=== PATIENT | male | born 1960 | race Caucasian/White ===

== ENCOUNTER 2017-04-24 19:55 | Inpatient (IN) | payer MEDICAID ==
[~2017-04-24] VITALS: Ht 167.6 cm; Wt 100.0 kg
[~2017-04-24 19:55] MED LIST: IBUP-232 PO
[2017-04-24 19:58] VITALS: BP 182/99; PULSE 76; RESP 30; TEMP 98.6; O2SAT 98
[2017-04-24 20:12] VITALS: BP_SYST 186; BP_SYST 202; BP_DIAS 111; BP_DIAS 114; PULSE 78; RESP 26; O2SAT 98
[2017-04-24] MEDS ORDERED: ONDANSETRON HCL 4 MG/2 ML VIAL IV PUSH ONE (20:15)
[2017-04-24] MEDS ORDERED: SODIUM CHLORIDE 0.9% FLUSH 10 ML FLUSH IVF PRN (20:15)
[2017-04-24] MEDS ORDERED: MORPHINE SULFATE 4 MG/ML INJ IV PUSH ONE (20:15)
[2017-04-24] MEDS: SODIUM CHLOR 0.9% 1000 ML INJ 1,000 ML IV SCH (20:26)
[2017-04-24 20:27] VITALS: O2SAT 96
[2017-04-24 20:37] LABS: AUTOMATED NEUTROPHIL # 7.1 TH/MM3 (1.8-7.7); BASOPHIL # 0.1 TH/MM3 (0-0.2); BASOPHIL % 0.6 % (0.0-2.0); EOSINOPHIL % 0.1 % (0.0-4.0); HEMATOCRIT 42.6 % (39.0-51.0); HEMOGLOBIN 14.8 GM/DL (13.0-17.0); LYMPH % 14.8 % (9.0-44.0); LYMPHOCYTE # 1.4 TH/MM3 (1.0-4.8); MEAN CELL VOLUME 96.2 FL (80.0-100.0); MEAN CORPUSCULAR HEMOGLOBIN 33.5 PG (27.0-34.0); MEAN CORPUSCULAR HGB CONC 34.8 % (32.0-36.0); MEAN PLATELET VOLUME 7.5 FL (7.0-11.0); MONO % 7.9 % (0.0-8.0); MONOCYTE # 0.7 TH/MM3 (0-0.9); NEUT % 76.6 % (16.0-70.0); PLATELET COUNT 282 TH/MM3 (150-450); RED BLOOD COUNT 4.43 MIL/MM3 (4.50-5.90); RED CELL DISTRIBUTION WIDTH 13.3 % (11.6-17.2); WHITE BLOOD COUNT 9.2 TH/MM3 (4.0-11.0)
--- NOTE | 2017-04-24 20:48 | RADRPT ---
EXAM DATE/TIME: 04/24/2017 20:21 [facility] COMPARISON: No previous studies available for comparison. INDICATIONS : Pain from fall off of roof. MEDICAL HISTORY : None. SURGICAL HISTORY : None. ENCOUNTER: Initial ACUITY: 1 day PAIN SCORE: 4/10 LOCATION: Bilateral pelvis FINDINGS: A single frontal view of the pelvis demonstrates no evidence of fracture. The bony pelvic ring is in tact. Bony mineralization is normal. The soft tissues are intact. CONCLUSION: 1. No acute fracture or dislocation. Derrick Carbajal MD on April 24, 2017 at 20:46 Board Certified Radiologist. This report was verified electronically.
[2017-04-24 20:50] LABS: PROTHROMBIN TIME - PATIENT 10.4 SEC (9.8-11.6)
--- NOTE | 2017-04-24 20:50 | RADRPT ---
EXAM DATE/TIME: 04/24/2017 20:31 [facility] COMPARISON: No previous studies available for comparison. INDICATIONS : Pain from fall off of roof. MEDICAL HISTORY : None. SURGICAL HISTORY : None. ENCOUNTER: Initial ACUITY: 1 day PAIN SCORE: 7/10 LOCATION: Right upper chest FINDINGS: There are mildly displaced fractures of the posterior third, and lateral fifth and sixth right ribs. There is a small loculated right effusion, likely hemothorax. Minimal left lung base airspace disease . Cardiomediastinal contours are within normal limits given portable technique. Remaining osseous str uctures are intact. CONCLUSION: 1. Minimally displaced right-sided rib fractures with very subtle right hemothorax. 2. Minimal left lung base airspace disease, likely atelectasis or contusion. Derrick Carbajal MD on April 24, 2017 at 20:48 Board Certified Radiologist. This report was verified electronically.
[2017-04-24 21:00] VITALS: BP 165/91; PULSE 71; RESP 26; O2SAT 97
[2017-04-24 21:12] LABS: TROPONIN I LESS THAN 0.02 NG/ML (0.02-0.05)
[2017-04-24] MEDS ORDERED: IOHEXOL 350 MG/ML 10 ML VIAL (for RAD DIAG) IVCONTRAST ONE (21:26)
--- NOTE | 2017-04-24 21:38 | RADRPT ---
EXAM DATE/TIME: 04/24/2017 21:04 [facility] COMPARISON: No previous studies available for comparison. INDICATIONS : Trauma, fall off roof. RADIATION DOSE: 65.86 CTDIvol (mGy) ; Tabletop CT Head MEDICAL HISTORY : None SURGICAL HISTORY : None. ENCOUNTER: Initial ACUITY: 1 day PAIN SCALE: 10/10 LOCATION: cranial TECHNIQUE: Multiple contiguous axial images were obtained of the head. Using automated exposure control and adj ustment of the mA and/or kV according to patient size, radiation dose was kept as low as reasonably a chievable to obtain optimal diagnostic quality images. DICOM format image data is available electro nically for review and comparison. FINDINGS: CEREBRUM: The ventricles are normal for age. No evidence of midline shift, mass lesion, hemorrhage or acute in farction. No extra-axial fluid collections are seen. POSTERIOR FOSSA: The cerebellum and brainstem are intact. The 4th ventricle is midline. The cerebellopontine angle i s unremarkable. EXTRACRANIAL: The visualized portion of the orbits is intact. SKULL: The calvaria is intact. No evidence of skull fracture. CONCLUSION: 1. No acute intracranial abnormality. Derrick Carbajal MD on April 24, 2017 at 21:36 Board Certified Radiologist. This report was verified electronically.
--- NOTE | 2017-04-24 21:43 | PD ---
HPI Chief Complaint: Fall Time Seen by Provider: 20:11 Travel History International Travel<30 days: No Contact w/Intl Traveler<30days: No Traveled to known affect area: No History of Present Illness HPI 56-year-old male fell from first-floor roof approximately 10 feet at 3 PM this afternoon. Patient states he landed on his back. Patient denies hitting his head or having loss of consciousness. Patient reports mild soreness to the neck but denies any neck pain. Due to persistent pain patient 6 presents because of chest pain and upper back pain. Patient denies any abdominal pain arm or leg pain. Patient rates pain as severe. Denies medical history except ventral hernia. Denies taking any medications. Patient denies tobacco use admits to alcohol use. Last meal. PFSH Past Medical History Narrative Medical Ventral hernia; no tobacco use; alcohol use occasionally; nursing notes reviewed Medical History: Denies Significant Hx Medical other: Yes (hernia) Tetanus Vaccination: > 5 Years Influenza Vaccination: No Past Surgical History Surgical History: No Previous Surgery Social History Alcohol Use: Yes (occ) Tobacco Use: No Substance Use: No Allergies-Medications (Allergen,Severity, Reaction): Coded Allergies: No Known Allergies (Unverified Adverse Reaction, Unknown, 04/24/17) Reported Meds & Prescriptions Reported Meds & Active Scripts Active No Active Prescriptions or Reported Medications Review of Systems Except as stated in HPI: all other systems reviewed are Neg General / Constitutional: No: Fever Eyes: No: Visual changes HENT: No: Headaches, Neck Pain Cardiovascular: Positive: Chest Pain or Discomfort Respiratory: Positive: Shortness of Breath Gastrointestinal: No: Abdominal Pain Genitourinary: No: Flank Pain Musculoskeletal: Positive: Myalgias, Arthralgias, No: Weakness, Pain (No upper or lower extremity pain numbness tingling or weakness) Skin: No Rash Neurologic: No: Weakness, Headache, Change in Mentation Psychiatric: No: Anxiety Hematologic/Lymphatic: No: Easy Bruising Physical Exam Narrative GENERAL: Well-developed well-nourished Kazakh-speaking male in no acute distress or respiratory distress although grimaces in pain with deep respiratory effort; GCS 15 SKIN: Warm and dry. HEAD: Atraumatic. Normocephalic. EYES: Pupils equal and round. No scleral icterus. No injection or drainage. ENT: No nasal bleeding or discharge. Mucous membranes pink and moist. No hemotympanum NECK: Trachea midline. No JVD. No midline tenderness to direct palpation along the cervical spine and no bony step-off; cervical collar applied CARDIOVASCULAR: Regular rate and rhythm. Chest wall: No ecchymosis or abrasion but tenderness to palpation of the chest wall without crepitus. RESPIRATORY: No accessory muscle use. Clear to auscultation. Breath sounds equal bilaterally. GASTROINTESTINAL: Abdomen soft, non-tender, nondistended. Hepatic and splenic margins not palpable. Small 5 cm x 5 cm reducible hernia in the epigastrium area MUSCULOSKELETAL: Extremities without clubbing, cyanosis, or edema. No obvious deformities. Radial and dorsalis pedis pulses 2+ to palpation. NEUROLOGICAL: Awake and alert. No obvious cranial nerve deficits. Motor grossly within normal limits. Five out of 5 muscle strength in the arms and legs. Normal speech. PSYCHIATRIC: Appropriate mood and affect; insight and judgment normal. Data Data Last Documented VS Vital Signs Date Time Temp Pulse Resp B/P (MAP) Pulse Ox O2 Delivery O2 Flow Rate FiO2 04/24/17 21:00 71 26 165/91 (115) 97 Nasal Cannula 2.00 04/24/17 19:58 98.6 Orders Orders I-Stat Profile (04/24/17 20:11) Complete Blood Count With Diff (04/24/17 20:11) Prothrombin Time / Inr (Pt) (04/24/17 20:11) Act Partial Throm Time (Ptt) (04/24/17 20:11) Type And Screen (04/24/17 20:11) Alcohol (Ethanol) (04/24/17 20:11) Chest, Single Ap (04/24/17 20:11) Pelvis, Ap Only (Routine) (04/24/17 20:11) Ct Brain W/O Iv Contrast(Rout) (04/24/17 20:11) Ct Cerv Spine W/O Contrast (04/24/17 20:11) Ct Abd/Pel W Iv Contrast(Rout) (04/24/17 20:11) Ct Thorax/ Chest W Iv Contrast (04/24/17 20:11) Ct Thor Spine W Iv Contrast (04/24/17 20:11) Ct Lumb Spine W Iv Contrast (04/24/17 20:11) Iv Access Insert/Monitor (04/24/17 20:11) Ecg Monitoring (04/24/17 20:11) Oximetry (04/24/17 20:11) Oxygen Administration (04/24/17 20:11) Morphine Inj (Morphine Inj) (04/24/17 20:15) Ondansetron Inj (Zofran Inj) (04/24/17 20:15) Sodium Chloride 0.9% Flush (Ns Flush) (04/24/17 20:15) Sodium Chlor 0.9% 1000 Ml Inj (Ns 1000 M (04/24/17 20:15) Electrocardiogram (04/24/17 ) Troponin I (04/24/17 20:11) Apply Cervical Collar (04/24/17 20:20) Iohexol 350 Inj (Omnipaque 350 Inj) (04/24/17 21:26) Labs Laboratory Tests Test 04/24/17 20:15 White Blood Count 9.2 TH/MM3 Red Blood Count 4.43 MIL/MM3 Hemoglobin 14.8 GM/DL Bedside Hemoglobin 15.0 G/DL Hematocrit 42.6 % Bedside Hematocrit 44.0 % Mean Corpuscular Volume 96.2 FL Mean Corpuscular Hemoglobin 33.5 PG Mean Corpuscular Hemoglobin Concent 34.8 % Red Cell Distribution Width 13.3 % Platelet Count 282 TH/MM3 Mean Platelet Volume 7.5 FL Neutrophils (%) (Auto) 76.6 % Lymphocytes (%) (Auto) 14.8 % Monocytes (%) (Auto) 7.9 % Eosinophils (%) (Auto) 0.1 % Basophils (%) (Auto) 0.6 % Neutrophils # (Auto) 7.1 TH/MM3 Lymphocytes # (Auto) 1.4 TH/MM3 Monocytes # (Auto) 0.7 TH/MM3 Eosinophils # (Auto) 0.0 TH/MM3 Basophils # (Auto) 0.1 TH/MM3 CBC Comment DIFF FINAL Differential Comment Prothrombin Time 10.4 SEC Prothromb Time International Ratio 1.0 RATIO Activated Partial Thromboplast Time 25.4 SEC Bedside Sodium 138 MMOL/L Bedside Potassium 3.9 MMOL/L Bedside Chloride 101 MMOL/L Bedside Blood Urea Nitrogen 6 MG/DL Bedside Creatinine 0.6 MG/DL Bedside Glucose 104 MG/DL Troponin I LESS THAN 0.02 NG/ML Ethyl Alcohol Level LESS THAN 3 MG/DL MDM Medical Decision Making Medical Screen Exam Complete: Yes Emergency Medical Condition: Yes Medical Record Reviewed: Yes Interpretation(s) EKG: Normal sinus rhythm rate [address] elevation or injury pattern intraventricular conduction delay Last Impressions Pelvis X-Ray 04/24/172010 Signed Impressions: Service Date/Time: Monday, April 24, 2017 20:21 - CONCLUSION: 1. No acute fracture or dislocation. Derrick Carbajal MD Head CT 04/24/172010 Signed Impressions: Service Date/Time: Monday, April 24, 2017 21:04 - CONCLUSION: 1. No acute intracranial abnormality. Derrick Carbajal MD Chest X-Ray 04/24/172010 Signed Impressions: Service Date/Time: Monday, April 24, 2017 20:31 - CONCLUSION: 1. Minimally displaced right-sided rib fractures with very subtle right hemothorax. 2. Minimal left lung base airspace disease, likely atelectasis or contusion. Derrick Carbajal MD Chest CT 04/24/172010 Signed Impressions: Service Date/Time: Monday, April 24, 2017 21:10 - CONCLUSION: 1. Multiple right-sided rib fractures, most prominently is a displaced posterior third rib fracture. 2. Very small right-sided hemothorax containing subtle foci of air and probable very subtle medial pneumothorax near the apex. 3. Minimal bibasilar airspace disease which may reflect atelectasis or pulmonary contusions. Derrick Carbajal MD Cervical Spine CT 04/24/172010 Signed Impressions: Service Date/Time: Monday, April 24, 2017 21:04 - CONCLUSION: 1. No acute cervical fracture or dislocation. 2. Nondisplaced fracture the posterior right second rib with partially imaged right pleural effusion containing foci of air. Please see CT chest report for details. Derrick Carbajal MD Abdomen/Pelvis CT 04/24/172010 Signed Impressions: Service Date/Time: Monday, April 24, 2017 21:10 - CONCLUSION: 1. No apparent acute traumatic injury in the abdomen or pelvis. 2. Incidental note of a 0.3 cm isodense exophytic mass arising from the posterior mid left kidney. Differential considerations include hemorrhagic cyst versus small renal cell carcinoma. Recommend renal mass protocol MRI examination on an outpatient basis for better evaluation. Derrick Carbajal MD CBC & BMP Diagram 04/24/17 20:15 Vital Signs Date Time Temp Pulse Resp B/P (MAP) Pulse Ox O2 Delivery O2 Flow Rate FiO2 04/24/17 21:00 71 26 165/91 (115) 97 Nasal Cannula 2.00 04/24/17 20:27 96 Room Air 04/24/17 20:12 78 26 202/114 (143) 98 Room Air 186/111 (136) 04/24/17 19:58 98.6 76 30 182/99 (126) 98 Room Air I-STAT chemistries sodium 138 potassium 3.9 chloride 101 BUN 6 creatinine 0.6 glucose 104; hemoglobin 15 hematocrit 44% Troponin I: Less than 0.02, not elevated Serum alcohol: Less than 3, not elevated Differential Diagnosis Rib fracture, pneumothorax, hemothorax, thoracic spine lumbar spine fracture cervical spine sprain strain fracture, intra-abdominal viscus injury, pelvis fracture Narrative Course 56-year-old male fell approximately 10 feet from roof at 3 PM today presents by private vehicle for complaint of back pain and anterior chest pain and pain on respirations with reported no head injury or loss of consciousness. Patient had no upper or lower extremity numbness tingling or weakness and has been ambulatory since injury but due to persistent pain decided to come to the emergency room for evaluation. Patient placed on residential monitor IV access obtain stat blood ordered patient moves GCS of 15 lungs sounds are clear bilaterally patient has chest wall tenderness to palpation without crepitus or ecchymosis or abrasion abdomen soft nondistended pelvis stable extremities intact without deformity. Stat chest x- ray and pelvis x-ray ordered. Dr Nieto - notified multiple right sided rib fractures small right hemothorax by cxr At 9:55 PM, surgeon informed of all imaging results except for pending thoracic spine CT and lumbar spine CT; per Dr. Quintero admit patient to his service as observation Physician Communication Physician Communication stat call to trauma --Dr Nieto Diagnosis Primary Impression: Multiple rib fractures involving four or more ribs Additional Impressions: Hemopneumothorax on right Status post fall Admitting Information Admitting Physician Requests: Admit Scripts No Active Prescriptions or Reported Meds Angie London MD Apr 24, 2017 21:43
--- NOTE | 2017-04-24 21:44 | RADRPT ---
EXAM DATE/TIME: 04/24/2017 21:04 [facility] COMPARISON: No previous studies available for comparison. INDICATIONS : Trauma, fall off roof. RADIATION DOSE: 21.54 CTDIvol (mGy) MEDICAL HISTORY : None SURGICAL HISTORY : None. ENCOUNTER: Initial ACUITY: 1 day PAIN SCALE: 10/10 LOCATION: neck TECHNIQUE: Volumetric scanning of the cervical spine was performed. Multiplanar reconstructions in the sagittal, coronal and oblique axial planes were performed. Using automated exposure control and adjustment o f the mA and/or kV according to patient size, radiation dose was kept as low as reasonably achievable to obtain optimal diagnostic quality images. DICOM format image data is available electronically f or review and comparison. FINDINGS: Nondisplaced fracture of the posterior right second rib. Partially imaged right pleural effusion cont aining small foci of air. Vertebral body heights are maintained. Osseous structures are intact withou t evidence for acute bony fracture. Dens is intact. Sagittal alignment is maintained. There is a norm al C1-2 relationship. Facets are normally aligned. There is no significant prevertebral soft tissue h ematoma. No significant cervical adenopathy or gross mass. The thyroid appears unremarkable. CONCLUSION: 1. No acute cervical fracture or dislocation. 2. Nondisplaced fracture the posterior right second rib with partially imaged right pleural effusion containing foci of air. Please see CT chest report for details. Derrick Carbajal MD on April 24, 2017 at 21:39 Board Certified Radiologist. This report was verified electronically.
--- NOTE | 2017-04-24 21:48 | RADRPT ---
EXAM DATE/TIME: 04/24/2017 21:10 [facility] COMPARISON: No previous studies available for comparison. INDICATIONS : Trauma, fall off roof. IV CONTRAST: 100 cc Omnipaque 350 (iohexol) IV ; Cumulative dose for multiple exams. ORAL CONTRAST: No oral contrast ingested. RADIATION DOSE: 18..01 CTDIvol (mGy) ; Combined studies - Thorax/Abdomen/Pelvis MEDICAL HISTORY : None SURGICAL HISTORY : None. ENCOUNTER: Initial ACUITY: 1 day PAIN SCALE: 10/10 LOCATION: abdomen TECHNIQUE: Volumetric scanning of the abdomen and pelvis was performed. Using automated exposure control and ad justment of the mA and/or kV according to patient size, radiation dose was kept as low as reasonably achievable to obtain optimal diagnostic quality images. DICOM format image data is available electro nically for review and comparison. FINDINGS: LIVER: Homogeneous density without lesion. There is no dilation of the biliary tree. No calcified gallston es. SPLEEN: Normal size without lesion. PANCREAS: Within normal limits. KIDNEYS: There is a 1.3 cm isodense exophytic mass arising from the posterior mid left kidney. Kidneys otherwi se demonstrate symmetrical enhancement without evidence for hydronephrosis or perinephric fluid. ADRENAL GLANDS: Within normal limits. VASCULAR: There is no aortic aneurysm. BOWEL/MESENTERY: The stomach, small bowel, and colon demonstrate no acute abnormality. There is no free intraperitone al air or fluid. ABDOMINAL WALL: Within normal limits. RETROPERITONEUM: There is no lymphadenopathy. BLADDER: No wall thickening or mass. REPRODUCTIVE: Within normal limits. INGUINAL: There is no lymphadenopathy or hernia. MUSCULOSKELETAL: Abdominal and pelvic osseous structures appear intact without acute fracture. CONCLUSION: 1. No apparent acute traumatic injury in the abdomen or pelvis. 2. Incidental note of a 0.3 cm isodense exophytic mass arising from the posterior mid left kidney. Di fferential considerations include hemorrhagic cyst versus small renal cell carcinoma. Recommend renal mass protocol MRI examination on an outpatient basis for better evaluation. Derrick Carbajal MD on April 24, 2017 at 21:43 Board Certified Radiologist. This report was verified electronically.
--- NOTE | 2017-04-24 21:53 | RADRPT ---
EXAM DATE/TIME: 04/24/2017 21:10 [facility] COMPARISON: No previous studies available for comparison. INDICATIONS : Trauma, fall off roof. IV CONTRAST: 100 cc Omnipaque 350 (iohexol) IV ; Cumulative dose for multiple exams. RADIATION DOSE: 18.01 CTDIvol (mGy) ; Combined studies - Thorax/Abdomen/Pelvis MEDICAL HISTORY : None SURGICAL HISTORY : None. ENCOUNTER: Initial ACUITY: 1 day PAIN SCALE: 10/10 LOCATION: chest TECHNIQUE: Volumetric scanning of the chest was performed. Using automated exposure control and adjustment of t he mA and/or kV according to patient size, radiation dose was kept as low as reasonably achievable to obtain optimal diagnostic quality images. DICOM format image data is available electronically for review and comparison. Follow-up recommendations for detected pulmonary nodules are based at a minimum on nodule size and pa tient risk factors according to Fleischner Society Guidelines. FINDINGS: LUNGS: Minimal bibasilar airspace disease which may reflect atelectasis or contusions. PLEURA: Very small right-sided hemothorax with subtle foci of air and likely very subtle medial pneumothorax near the apex. MEDIASTINUM: The heart and great vessels demonstrate no acute abnormality. There is no mediastinal or hilar lymph adenopathy. AXILLAE: Within normal limits. No lymphadenopathy. SKELETAL: Nondisplaced fracture of the posterior second right rib. Displaced fracture of the posterior right th ird rib minimally displaced fractures of the right lateral fifth and sixth ribs. Old left clavicle fr acture. MISCELLANEOUS: The visualized upper abdominal organs demonstrate no acute abnormality. CONCLUSION: 1. Multiple right-sided rib fractures, most prominently is a displaced posterior third rib fracture. 2. Very small right-sided hemothorax containing subtle foci of air and probable very subtle medial pn eumothorax near the apex. 3. Minimal bibasilar airspace disease which may reflect atelectasis or pulmonary contusions. Derrick Carbajal MD on April 24, 2017 at 21:46 Board Certified Radiologist. This report was verified electronically.
--- NOTE | 2017-04-24 22:07 | RADRPT ---
EXAM DATE/TIME: 04/24/2017 21:10 [facility] COMPARISON: No previous studies available for comparison. INDICATIONS : Trauma, fall off roof. IV CONTRAST: 100 cc Omnipaque 350 (iohexol) IV ; Cumulative dose for multiple exams. RADIATION DOSE: CTDIvol (mGy) ; Reconstructed from previous dataset, no dose MEDICAL HISTORY : None SURGICAL HISTORY : None. ENCOUNTER: Initial ACUITY: 1 day PAIN SCALE: 10/10 LOCATION: Paraspinal TECHNIQUE: Volumetric scanning of the thoracic spine was performed. Multiplanar reconstructions in the sagittal , coronal and oblique axial planes were performed. Using automated exposure control and adjustment o f the mA and/or kV according to patient size, radiation dose was kept as low as reasonably achievable to obtain optimal diagnostic quality images. DICOM format image data is available electronically fo r review and comparison. FINDINGS: The vertebral bodies of the thoracic spine are in normal alignment without evidence of subluxation. Vertebral body height is maintained. No thoracic spine fractures are seen. Redemonstration of displac ed right-sided rib fractures with associated trace right sided hemothorax a very subtle extra parench ymal air. There is a non-displaced fracture of the posterior 10th rib not previously described. T1-T2: Normal. T2-T3: The thecal sac has a normal diameter. No evidence of disc bulge or protrusion. T3-T4: The thecal sac has a normal diameter. No evidence of disc bulge or protrusion. T4-T5: The thecal sac has a normal diameter. No evidence of disc bulge or protrusion. T5-T6: The thecal sac has a normal diameter. No evidence of disc bulge or protrusion. T6-T7: The thecal sac has a normal diameter. No evidence of disc bulge or protrusion. T7-T8: The thecal sac has a normal diameter. No evidence of disc bulge or protrusion. T8-T9: The thecal sac has a normal diameter. No evidence of disc bulge or protrusion. T9-T10: The thecal sac has a normal diameter. No evidence of disc bulge or protrusion. T10-T11: The thecal sac has a normal diameter. No evidence of disc bulge or protrusion. T11-T12: The thecal sac has a normal diameter. No evidence of disc bulge or protrusion. T12-L1: The thecal sac has a normal diameter. No evidence of disc bulge or protrusion. CONCLUSION: 1. No thoracic spine fracture or subluxation. 2. Nondisplaced fracture of the posterior right 10th rib, not previously described. Derrick Carbajal MD on April 24, 2017 at 22:03 Board Certified Radiologist. This report was verified electronically.
--- NOTE | 2017-04-24 22:27 | RADRPT ---
EXAM DATE/TIME: 04/24/2017 21:10 [facility] COMPARISON: No previous studies available for comparison. INDICATIONS : Trauma; fall from roof. IV CONTRAST: 100 cc Omnipaque 350 (iohexol) IV ; Cumulative dose for multiple exams. RADIATION DOSE: CTDIvol (mGy) ; Reconstructed from previous dataset, no dose MEDICAL HISTORY : None SURGICAL HISTORY : None. ENCOUNTER: Initial ACUITY: 1 day PAIN SCALE: 10/10 LOCATION: lower back TECHNIQUE: Volumetric scanning of the lumbar spine was performed. Multiplanar reconstructions in the sagittal, coronal and oblique axial planes were performed. Using automated exposure control and adjustment of the mA and/or kV according to patient size, radiation dose was kept as low as reasonably achievable t o obtain optimal diagnostic quality images. DICOM format image data is available electronically for review and comparison. FINDINGS: VERTEBRAL BODIES: The vertebral body heights are intact. Mild endplate sclerosis at L1 vertebral body. CONUS MEDULLARIS: Normal. PARASPINAL SOFT TISSUES: Normal. LUMBAR CORD: Normal. DURAL SAC: Normal. L1-L2: The disc, uncovertebral joints, central canal, foramina, and facets are normal. L2-L3: The disc, uncovertebral joints, central canal, foramina, and facets are normal. L3-L4: Mild diffuse disc bulge without significant central canal or neural foraminal narrowing. L4-L5: Mild diffuse disc bulge without significant central canal or neural foraminal narrowing. L5-S1: Mild diffuse disc bulge without significant central canal or neural foraminal narrowing. CONCLUSION: 1. No acute lumbar fracture or subluxation. 2. Mild degenerative spondylosis of the lower lumbar spine. Derrick Carbajal MD on April 24, 2017 at 22:22 Board Certified Radiologist. This report was verified electronically.
[2017-04-24] MEDS ORDERED: SODIUM CHLORIDE 0.9% FLUSH 10 ML FLUSH IV FLUSH PRN (22:30)
[2017-04-24] MEDS ORDERED: ONDANSETRON HCL 4 MG/2 ML VIAL IV PUSH PRN (22:30)
[2017-04-24] MEDS ORDERED: ENALAPRILAT 1.25 MG/ML VIAL IV PUSH PRN (22:30)
[2017-04-24] MEDS ORDERED: ACETAMINOPHEN/HYDROcodone 325 MG/5 MG TAB PO PRN (22:30)
[2017-04-24] MEDS ORDERED: MORPHINE SULFATE 4 MG/ML INJ IV PUSH PRN (22:30)
[2017-04-24] MEDS ORDERED: TETANUS/DIPHTHERIA TOXOID ADULT 0.5 ML VIAL IM ONE (22:45)
--- NOTE | 2017-04-24 22:57 | EKG ---
Date Performed: 04/24/2017 Time Performed: 20:37:58 PTAGE: 56 years EKG: Sinus rhythm NONSPECIFIC INTRAVENTRICULAR CONDUCTION DELAY BORDERLINE ECG NO PREVIOUS TRACING DOCTOR: Marcus Hensley Interpretating Date/Time 04/24/2017 22:57:12
[2017-04-24] MEDS: PANTOPRAZOLE SODIUM 40 MG VIAL IVP SCH (23:07)
[2017-04-24 23:30] VITALS: BP 151/91; PULSE 60; RESP 18; TEMP 97.6; O2SAT 96
[2017-04-25] VITALS (7 sets, daily range): BP systolic 117–175; BP diastolic 68–102; PULSE 57–76; RESP 16–18; TEMP 96–98.1; O2SAT 94–100
[2017-04-25] MEDS: SODIUM CHLOR 0.9% 1000 ML INJ 1,000 ML IV SCH ×2 (04:15→17:10)
--- NOTE | 2017-04-25 06:23 | RADRPT ---
EXAM DATE/TIME: 04/25/2017 05:22 [facility] COMPARISON: CT THORAX W CONTRAST, April 24, 2017, 21:10. CHEST SINGLE AP, April 24, 2017, 20:31. INDICATIONS : Follow up acute trauma injury, right-sided rib fractures and hemothorax. MEDICAL HISTORY : rib fractures SURGICAL HISTORY : None. ENCOUNTER: Subsequent ACUITY: 2 days PAIN SCORE: 8/10 LOCATION: Right chest FINDINGS: Patchy consolidation throughout the right lung and at the left base worse in the interim. There is a small loculated pleural effusion and/or hemothorax again seen on the right, also slightly larger. I d on't see a pneumothorax. Right rib fractures are again noted. Mild cardiomegaly. CONCLUSION: Patchy diffuse consolidation on the right and basilar consolidation on the left slightly worse. Also slightly increased loculated right pleural effusion/hemothorax but remains small. Ganga Zimmer MD on April 25, 2017 at 6:20 Board Certified Radiologist. This report was verified electronically.
[2017-04-25 07:07] LABS: AUTOMATED NEUTROPHIL # 3.4 TH/MM3 (1.8-7.7); BASOPHIL % 0.7 % (0.0-2.0); EOSINOPHIL # 0.1 TH/MM3 (0-0.4); HEMOGLOBIN 13.8 GM/DL (13.0-17.0); LYMPH % 27.2 % (9.0-44.0); LYMPHOCYTE # 1.5 TH/MM3 (1.0-4.8); MEAN CORPUSCULAR HEMOGLOBIN 34.4 PG (27.0-34.0); MEAN CORPUSCULAR HGB CONC 35.4 % (32.0-36.0); MEAN PLATELET VOLUME 7.6 FL (7.0-11.0); MONO % 9.8 % (0.0-8.0); MONOCYTE # 0.5 TH/MM3 (0-0.9); NEUT % 61.3 % (16.0-70.0); PLATELET COUNT 248 TH/MM3 (150-450); RED BLOOD COUNT 4.02 MIL/MM3 (4.50-5.90); WHITE BLOOD COUNT 5.6 TH/MM3 (4.0-11.0)
[2017-04-25 07:25] LABS: ALBUMIN 3.6 GM/DL (3.4-5.0); ALT (GPT) 70 U/L (12-78); AST (GOT) 92 U/L (15-37); BICARBONATE 27.6 MEQ/L (21.0-32.0); BLOOD UREA NITROGEN 7 MG/DL (7-18); CALCIUM 8.7 MG/DL (8.5-10.1); CHLORIDE 105 MEQ/L (98-107); CREATININE 0.71 MG/DL (0.60-1.30); GLOMERULAR FILTRATION RATE 115 ML/MIN (>89); GLUCOSE,RANDOM 97 MG/DL (74-106); SODIUM (NA) 138 MEQ/L (136-145)
[2017-04-25 07:28] LABS: ALKALINE PHOSPHATASE 72 U/L (45-117); TOTAL BILIRUBIN ADULT 1.1 MG/DL (0.2-1.0); TOTAL PROTEIN 7.2 GM/DL (6.4-8.2)
[2017-04-25] MEDS ORDERED: LACTULOSE SYRUP 20 GM/30 ML CUP PO PRN (07:45)
[2017-04-25] MEDS: RESP: ALBUTEROL 2.5 MG/IPRATROPIUM 0.5 MG NEB (SCH) NEB ×4 (08:00→20:23)
[2017-04-25] MEDS: LIDOCAINE HCL 5% PATCH T-DERMAL SCH (08:40)
[2017-04-25] MEDS: METHOCARBAMOL 500 MG TAB PO SCH ×3 (08:41→23:47)
[2017-04-25] MEDS: DOCUSATE SODIUM 50 MG/SENNA 8.6 MG TAB PO SCH ×2 (08:41→20:56)
[2017-04-25] MEDS: POLYETHYLENE GLYCOL 17 GM PKG PO SCH (08:42)
[2017-04-25] MEDS: ACETAMINOPHEN 1000 MG/100 ML 100 ML IV SCH ×3 (08:42→20:57)
[2017-04-25] MEDS: REMOVE OLD LIDOCAINE PATCH T-DERMAL SCH ×2 (09:00→21:03)
[2017-04-25] MEDS: PANTOPRAZOLE SODIUM 40 MG VIAL IVP SCH (09:00)
[2017-04-25] MEDS ORDERED: LISINOPRIL 20 MG TAB PO SCH (12:30)
--- NOTE | 2017-04-25 12:31 | HHI.PR ---
Subjective Subjective Notes [place] speaking only- communication done through [employer] pipe buffer Pain medication effective for rib pain Hypertensive, reports no home meds Objective Vitals/I&O Vital Signs Date Time Temp Pulse Resp B/P (MAP) Pulse Ox O2 Delivery O2 Flow Rate FiO2 04/25/17 08:00 98.1 62 18 175/102 (126) 96 04/25/17 02:50 Nasal Cannula 2.00 Labs Laboratory Tests Test 04/24/17 20:15 04/25/17 05:40 White Blood Count 9.2 5.6 Red Blood Count 4.43 4.02 Hemoglobin 14.8 13.8 Bedside Hemoglobin 15.0 Hematocrit 42.6 39.0 Bedside Hematocrit 44.0 Mean Corpuscular Volume 96.2 97.0 Mean Corpuscular Hemoglobin 33.5 34.4 Mean Corpuscular Hemoglobin Concent 34.8 35.4 Red Cell Distribution Width 13.3 13.0 Platelet Count 282 248 Mean Platelet Volume 7.5 7.6 Neutrophils (%) (Auto) 76.6 61.3 Lymphocytes (%) (Auto) 14.8 27.2 Monocytes (%) (Auto) 7.9 9.8 Eosinophils (%) (Auto) 0.1 1.0 Basophils (%) (Auto) 0.6 0.7 Neutrophils # (Auto) 7.1 3.4 Lymphocytes # (Auto) 1.4 1.5 Monocytes # (Auto) 0.7 0.5 Eosinophils # (Auto) 0.0 0.1 Basophils # (Auto) 0.1 0.0 CBC Comment DIFF FINAL DIFF FINAL Differential Comment Prothrombin Time 10.4 Prothromb Time International Ratio 1.0 Activated Partial Thromboplast Time 25.4 Bedside Sodium 138 Bedside Potassium 3.9 Bedside Chloride 101 Bedside Blood Urea Nitrogen 6 Bedside Creatinine 0.6 Bedside Glucose 104 Troponin I LESS THAN 0.02 Ethyl Alcohol Level LESS THAN 3 Blood Urea Nitrogen 7 Creatinine 0.71 Random Glucose 97 Total Protein 7.2 Albumin 3.6 Calcium Level 8.7 Alkaline Phosphatase 72 Aspartate Amino Transf (AST/SGOT) 92 Alanine Aminotransferase (ALT/SGPT) 70 Total Bilirubin 1.1 Sodium Level 138 Potassium Level 3.6 Chloride Level 105 Carbon Dioxide Level 27.6 Anion Gap 5 Estimat Glomerular Filtration Rate 115 Radiology Last Impressions Chest X-Ray 04/25/17 0000 Signed Impressions: Service Date/Time: Tuesday, April 25, 2017 05:22 - CONCLUSION: Patchy diffuse consolidation on the right and basilar consolidation on the left slightly worse. Also slightly increased loculated right pleural effusion/hemothorax but remains small. Ganga Zimmer MD Thoracic Spine CT 04/24/172010 Signed Impressions: Service Date/Time: Monday, April 24, 2017 21:10 - CONCLUSION: 1. No thoracic spine fracture or subluxation. 2. Nondisplaced fracture of the posterior right 10th rib, not previously described. Derrick Carbajal MD Pelvis X-Ray 04/24/172010 Signed Impressions: Service Date/Time: Monday, April 24, 2017 20:21 - CONCLUSION: 1. No acute fracture or dislocation. Derrick Carbajal MD Lumbar Spine CT 04/24/172010 Signed Impressions: Service Date/Time: Monday, April 24, 2017 21:10 - CONCLUSION: 1. No acute lumbar fracture or subluxation. 2. Mild degenerative spondylosis of the lower lumbar spine. Derrick Carbajal MD Head CT 04/24/172010 Signed Impressions: Service Date/Time: Monday, April 24, 2017 21:04 - CONCLUSION: 1. No acute intracranial abnormality. Derrick Carbajal MD Chest CT 04/24/172010 Signed Impressions: Service Date/Time: Monday, April 24, 2017 21:10 - CONCLUSION: 1. Multiple right-sided rib fractures, most prominently is a displaced posterior third rib fracture. 2. Very small right-sided hemothorax containing subtle foci of air and probable very subtle medial pneumothorax near the apex. 3. Minimal bibasilar airspace disease which may reflect atelectasis or pulmonary contusions. Derrick Carbajal MD Cervical Spine CT 04/24/172010 Signed Impressions: Service Date/Time: Monday, April 24, 2017 21:04 - CONCLUSION: 1. No acute cervical fracture or dislocation. 2. Nondisplaced fracture the posterior right second rib with partially imaged right pleural effusion containing foci of air. Please see CT chest report for details. Derrick Carbajal MD Abdomen/Pelvis CT 04/24/172010 Signed Impressions: Service Date/Time: Monday, April 24, 2017 21:10 - CONCLUSION: 1. No apparent acute traumatic injury in the abdomen or pelvis. 2. Incidental note of a 0.3 cm isodense exophytic mass arising from the posterior mid left kidney. Differential considerations include hemorrhagic cyst versus small renal cell carcinoma. Recommend renal mass protocol MRI examination on an outpatient basis for better evaluation. Derrick Carbajal MD Narrative Exam GENERAL: 56-year-old well-nourished, well developed male lying in bed in no acute distress. SKIN: Warm and dry. HEAD:Normocephalic. EYES: Pupils equal and round. No scleral icterus. ENT: No nasal bleeding or discharge. Mucous membranes pink and moist. NECK: Trachea midline. No JVD. CARDIOVASCULAR: Regular rate and rhythm. RESPIRATORY: No accessory muscle use. Lungs clear and diminished to auscultation. Breath sounds equal bilaterally. GASTROINTESTINAL: Abdomen soft, non-tender, nondistended. + BS. MUSCULOSKELETAL: Extremities without cyanosis, or edema. MAEW, + perfused NEUROLOGICAL: Awake and alert. Normal speech. A/P Assessment and Plan [place]: Fell from a first floor roof (approximately 10 ft) landing on his back. No LOC. Patient did not seek care until 5 hours later when he had persistent back pain. INJURIES: RIGHT rib fxs (2, 3, 5, 6, 10) BILAT pulmonary contusions RIGHT JANE RIGHT rib fxs, BILAT pulmonary contusions, RIGHT JANE Supportive care Pulmonary toileting CXR today shows- BILAT pulmonary contusions, small R JANE Pain control OOB- PT ordered CXR in AM Incidental RIGHT renal mass Patient informed and instructed to F/U with PCP for MRI as outpatient HTN No known hx per pt Added Lisinopril 20mg BID Heart healthy diet Consulted Hospitalist Monitor BPs Plan of care d/w patient at bedside via [facility] [employer] pipe buffer. D/W RN. Case management consulted to assist with DC planning. Plan to DC in 1-2 days when pain controlled. The exam, history, and the medical decision-making described in the above note were completed with the assistance of the mid-level provider. I reviewed and agree with the findings presented. I attest that I had a [id number] encounter with the patient on the same day, and personally performed and documented my assessment and findings in the medical record. Milena Powers Apr 25, 2017 12:31 Kevin Nieto MD Apr 26, 2017 08:15
--- NOTE | 2017-04-25 18:34 | PD.CONS ---
HPI Service [facility] Consult Requested By Dr. Kevin Nieto Reason for Consult Medical management including hypertension Primary Care Physician No Primary Care Physician Diagnoses: History of Present Illness This is a 56-year-old male with no significant past medical history. History is taken with the assistance of [employer] historic interpreter. He fell from a ladder about 10-12 feet high and landed on his back on the right side. He was on the ground for a good 10 minutes because it was difficult to breathe secondary to back and chest pain. He denies loss of consciousness, neck pain and head trauma. Trauma workup shows right-sided rib fractures with associated hemo-and pneumothorax. Consultation has been requested by patient's attending for medical management including hypertension. Blood pressure readings initially have been elevated as high as 202/114. With initiation of pain medications, BP improved down to 133/83 before starting lisinopril. Patient denies history of hypertension. No headache and dizziness. He reports that since the accident he noted his abdominal hernia is slightly bigger. No nausea and vomiting. Also found to have an incidental left kidney mass and recommended MRI outpatient. He also has elevated AST. He denies history of hepatitis and occasionally drinks alcohol. All other systems reviewed negative. Review of Systems Except as stated in HPI: all other systems reviewed are Neg Past Family Social History Allergies: Coded Allergies: No Known Allergies (Unverified Allergy, Unknown, 04/24/17) Past Medical History Denies Past Surgical History Denies Reported Medications None Family History Denies history of coronary artery disease and CVA Social History Occasional alcohol use. Does not smoke Physical Exam Vital Signs Vital Signs Date Time Temp Pulse Resp B/P (MAP) Pulse Ox O2 Delivery O2 Flow Rate FiO2 04/25/17 16:00 96.7 57 16 138/79 (98) 97 04/25/17 12:00 96.0 61 16 133/83 (100) 97 04/25/17 08:00 98.1 62 18 175/102 (126) 96 04/25/17 03:50 96.9 65 18 147/86 (106) 100 04/25/17 02:50 Nasal Cannula 2.00 04/24/17 23:30 97.6 60 18 151/91 (111) 96 04/24/17 23:26 04/24/17 21:00 71 26 165/91 (115) 97 Nasal Cannula 2.00 04/24/17 20:27 96 Room Air 04/24/17 20:12 78 26 202/114 (143) 98 Room Air 186/111 (136) 04/24/17 19:58 98.6 76 30 182/99 (126) 98 Room Air Physical Exam GENERAL: This is a well-nourished, well-developed patient, in no apparent distress. SKIN: No rashes, ecchymoses or lesions. Cool and dry. HEAD: Atraumatic. Normocephalic. No temporal or scalp tenderness. EYES: Pupils equal round and reactive. Extraocular motions intact. No scleral icterus. No injection or drainage. ENT: Nose without bleeding, purulent drainage or septal hematoma. Throat without erythema, tonsillar hypertrophy or exudate. Uvula midline. Airway patent. NECK: Trachea midline. No JVD or lymphadenopathy. Supple, nontender, no meningeal signs. CARDIOVASCULAR: Regular rate and rhythm without murmurs, gallops, or rubs. RESPIRATORY: Clear to auscultation. Breath sounds equal bilaterally. No wheezes , rales, or rhonchi. Tender right anterior and lateral chest wall. GASTROINTESTINAL: Abdomen soft, non-tender, nondistended. Reducible small hernia in the epigastric area. No guarding. MUSCULOSKELETAL: Extremities without clubbing, cyanosis, or edema. No joint tenderness, effusion, or edema noted. No calf tenderness. Negative Homans sign bilaterally. NEUROLOGICAL: Awake and alert. Cranial nerves II through XII intact. Motor and sensory grossly within normal limits. Five out of 5 muscle strength in all muscle groups. Normal speech. Laboratory Laboratory Tests Test 04/24/17 20:15 04/25/17 05:40 White Blood Count 9.2 5.6 Red Blood Count 4.43 4.02 Hemoglobin 14.8 13.8 Bedside Hemoglobin 15.0 Hematocrit 42.6 39.0 Bedside Hematocrit 44.0 Mean Corpuscular Volume 96.2 97.0 Mean Corpuscular Hemoglobin 33.5 34.4 Mean Corpuscular Hemoglobin Concent 34.8 35.4 Red Cell Distribution Width 13.3 13.0 Platelet Count 282 248 Mean Platelet Volume 7.5 7.6 Neutrophils (%) (Auto) 76.6 61.3 Lymphocytes (%) (Auto) 14.8 27.2 Monocytes (%) (Auto) 7.9 9.8 Eosinophils (%) (Auto) 0.1 1.0 Basophils (%) (Auto) 0.6 0.7 Neutrophils # (Auto) 7.1 3.4 Lymphocytes # (Auto) 1.4 1.5 Monocytes # (Auto) 0.7 0.5 Eosinophils # (Auto) 0.0 0.1 Basophils # (Auto) 0.1 0.0 CBC Comment DIFF FINAL DIFF FINAL Differential Comment Prothrombin Time 10.4 Prothromb Time International Ratio 1.0 Activated Partial Thromboplast Time 25.4 Bedside Sodium 138 Bedside Potassium 3.9 Bedside Chloride 101 Bedside Blood Urea Nitrogen 6 Bedside Creatinine 0.6 Bedside Glucose 104 Troponin I LESS THAN 0.02 Ethyl Alcohol Level LESS THAN 3 Blood Urea Nitrogen 7 Creatinine 0.71 Random Glucose 97 Total Protein 7.2 Albumin 3.6 Calcium Level 8.7 Alkaline Phosphatase 72 Aspartate Amino Transf (AST/SGOT) 92 Alanine Aminotransferase (ALT/SGPT) 70 Total Bilirubin 1.1 Sodium Level 138 Potassium Level 3.6 Chloride Level 105 Carbon Dioxide Level 27.6 Anion Gap 5 Estimat Glomerular Filtration Rate 115 Result Diagram: 04/25/17 0540 04/25/17 0540 Imaging Last Impressions Chest X-Ray 04/25/17 0000 Signed Impressions: Service Date/Time: Tuesday, April 25, 2017 05:22 - CONCLUSION: Patchy diffuse consolidation on the right and basilar consolidation on the left slightly worse. Also slightly increased loculated right pleural effusion/hemothorax but remains small. Ganga Zimmer MD Thoracic Spine CT 04/24/172010 Signed Impressions: Service Date/Time: Monday, April 24, 2017 21:10 - CONCLUSION: 1. No thoracic spine fracture or subluxation. 2. Nondisplaced fracture of the posterior right 10th rib, not previously described. Derrick Carbajal MD Pelvis X-Ray 04/24/172010 Signed Impressions: Service Date/Time: Monday, April 24, 2017 20:21 - CONCLUSION: 1. No acute fracture or dislocation. Derrick Carbajal MD Lumbar Spine CT 04/24/172010 Signed Impressions: Service Date/Time: Monday, April 24, 2017 21:10 - CONCLUSION: 1. No acute lumbar fracture or subluxation. 2. Mild degenerative spondylosis of the lower lumbar spine. Derrick Carbajal MD Head CT 04/24/172010 Signed Impressions: Service Date/Time: Monday, April 24, 2017 21:04 - CONCLUSION: 1. No acute intracranial abnormality. Derrick Carbajal MD Chest CT 04/24/172010 Signed Impressions: Service Date/Time: Monday, April 24, 2017 21:10 - CONCLUSION: 1. Multiple right-sided rib fractures, most prominently is a displaced posterior third rib fracture. 2. Very small right-sided hemothorax containing subtle foci of air and probable very subtle medial pneumothorax near the apex. 3. Minimal bibasilar airspace disease which may reflect atelectasis or pulmonary contusions. Derrick Carbajal MD Cervical Spine CT 04/24/172010 Signed Impressions: Service Date/Time: Monday, April 24, 2017 21:04 - CONCLUSION: 1. No acute cervical fracture or dislocation. 2. Nondisplaced fracture the posterior right second rib with partially imaged right pleural effusion containing foci of air. Please see CT chest report for details. Derrick Carbajal MD Abdomen/Pelvis CT 04/24/172010 Signed Impressions: Service Date/Time: Monday, April 24, 2017 21:10 - CONCLUSION: 1. No apparent acute traumatic injury in the abdomen or pelvis. 2. Incidental note of a 0.3 cm isodense exophytic mass arising from the posterior mid left kidney. Differential considerations include hemorrhagic cyst versus small renal cell carcinoma. Recommend renal mass protocol MRI examination on an outpatient basis for better evaluation. Derrick Carbajal MD Assessment and Plan Assessment and Plan This is a 56-year-old male who fell from a ladder about 10-12 feet high and landed on his back on the right side. He denies loss of consciousness, neck pain and head trauma. Trauma workup shows right-sided rib fractures with associated hemo-and pneumothorax. Consultation has been requested by patient's attending for medical management including hypertension. Fall from a ladder at least 10 feet high resulting to right-sided fractures with hemopneumothorax. He is hemodynamically stable at this time. Continue nebulizations, incentive spirometry and pain management with oxycodone, IV morphine and Robaxin. Consult regarding narcotics repeat chest x-ray in the morning. Further management per trauma surgery Elevated blood pressure. Blood pressure readings initially have been elevated as high as 202/114. With initiation of pain medications, BP improved down to 133/83 before starting lisinopril. Patient denies history of hypertension. No headache and dizziness. Will discontinue lisinopril for now as BP has normalized and I am concerned he will drop his blood pressure with narcotics. Will monitor BP closely. Will treat with as needed IV Vasotec if BP is elevated in the absence of pain. Reducible abdominal hernia. No nausea and vomiting. We will continue to monitor Incidental left kidney mass and recommended MRI outpatient. Elevated AST. He denies history of hepatitis and occasionally drinks alcohol. Likely this is related to liver congestion. Will monitor repeat CMP in the morning. DVT prophylaxis with SCD. Patient is already ambulatory. Discussed Condition With Patient and family Dexter Stubbs MD Apr 25, 2017 18:34
--- NOTE | 2017-04-25 19:31 | MH ---
cc: JAGJIT JUAREZ DATE OF ADMISSION: 04/24/2017 HISTORY OF PRESENT ILLNESS: This is a patient who was brought in as a non-trauma alert after falling from a 10 foot height. On evaluation by the emergency room physician, the patient was noted to have rib fractures as well as a small pneumothorax. The trauma service was requested to manage it. On my evaluation, the patient was lying in bed in no acute distress. He is Welsh-speaking. History was obtained through interpretation. He complains of right-sided chest pain and pain with inspiration. Denies loss of consciousness. No belly pain. No paresthesias. PAST MEDICAL HISTORY: He denies a medical history. MEDICATIONS: He states he is on no chronic medications. ALLERGIES: HE HAS NO KNOWN DRUG ALLERGIES. SOCIAL HISTORY: He drinks alcohol occasionally. FAMILY HISTORY: Noncontributory. REVIEW OF SYSTEMS: Significant for the above. All other ten-point review was negative. PHYSICAL EXAMINATION: GENERAL: On exam, he is lying in bed in no acute distress. HEAD, EYES, EARS, NOSE, THROAT: Pupils equal and reactive. NECK: Trachea is midline. Neck without jugular venous distention. LUNGS: Respirations clear. CARDIOVASCULAR: Regular. CHEST: No crepitus. GASTROINTESTINAL: Nontender. MUSCULOSKELETAL: No deformities. NEUROLOGICAL: Nonfocal. IMAGING STUDIES: CT of the patient's head is negative. CT of the cervical spine shows no fractures. CT of the chest reveals multiple right-sided rib fractures, small right-sided hemothorax, questionable subtle medial pneumothorax. CT of the abdomen and pelvis is negative for acute injury. ASSESSMENT: This is a patient who is status post fall from 10 feet with right-sided rib fractures, small hemothorax. PLAN: The patient is being admitted. Will provide pain management, monitor the respiratory status, repeat chest x-ray in the a.m. MD ANA Ugarte/ASHLEY /6:55 PM /7:21 PM
[2017-04-26] MEDS: SODIUM CHLOR 0.9% 1000 ML INJ 1,000 ML IV SCH (00:56)
[2017-04-26] MEDS: ACETAMINOPHEN 1000 MG/100 ML 100 ML IV SCH (01:01)
[2017-04-26 04:25] VITALS: BP 106/61; PULSE 57; RESP 18; TEMP 96.8; O2SAT 96
[2017-04-26 05:35] LABS: AUTOMATED NEUTROPHIL # 3.6 TH/MM3 (1.8-7.7); BASOPHIL % 0.7 % (0.0-2.0); EOSINOPHIL # 0.1 TH/MM3 (0-0.4); EOSINOPHIL % 1.8 % (0.0-4.0); HEMATOCRIT 37.7 % (39.0-51.0); HEMOGLOBIN 13.2 GM/DL (13.0-17.0); LYMPH % 22.2 % (9.0-44.0); LYMPHOCYTE # 1.2 TH/MM3 (1.0-4.8); MEAN CELL VOLUME 97.9 FL (80.0-100.0); MEAN CORPUSCULAR HEMOGLOBIN 34.2 PG (27.0-34.0); MEAN PLATELET VOLUME 7.4 FL (7.0-11.0); MONO % 7.2 % (0.0-8.0); MONOCYTE # 0.4 TH/MM3 (0-0.9); NEUT % 68.1 % (16.0-70.0); PLATELET COUNT 234 TH/MM3 (150-450); RED BLOOD COUNT 3.85 MIL/MM3 (4.50-5.90); WHITE BLOOD COUNT 5.3 TH/MM3 (4.0-11.0)
[2017-04-26 05:50] LABS: ALBUMIN 3.2 GM/DL (3.4-5.0); BICARBONATE 28.7 MEQ/L (21.0-32.0); CALCIUM 8.5 MG/DL (8.5-10.1); CREATININE 0.69 MG/DL (0.60-1.30); DIRECT BILIRUBIN ADULT 0.2 MG/DL (0.0-0.2)
--- NOTE | 2017-04-26 05:51 | RADRPT ---
EXAM DATE/TIME: 04/26/2017 04:49 [facility] COMPARISON: CHEST SINGLE AP, April 25, 2017, 5:22. INDICATIONS : Follow up acute trauma injury, right-sided rib fractures and hemothorax. MEDICAL HISTORY : Rib fractures SURGICAL HISTORY : None. ENCOUNTER: Subsequent ACUITY: 3 days PAIN SCORE: 8/10 LOCATION: Right chest FINDINGS: Mild patchy airspace opacities of both lungs again noted, fairly diffuse on the right and basilar pre dominant on the left. Neither side are significantly changed. A small laterally loculated right pleur al effusion is also stable. Right rib fractures are again seen. No pneumothorax demonstrated. Mild cardiomegaly unchanged. CONCLUSION: No significant change. Ganga Zimmer MD on April 26, 2017 at 5:49 Board Certified Radiologist. This report was verified electronically.
[2017-04-26 05:53] LABS: INDIRECT BILIRUBIN 0.7 MG/DL (0.0-0.8); TOTAL BILIRUBIN ADULT 0.9 MG/DL (0.2-1.0); TOTAL PROTEIN 6.9 GM/DL (6.4-8.2)
[2017-04-26] MEDS: RESP: ALBUTEROL 2.5 MG/IPRATROPIUM 0.5 MG NEB (SCH) NEB ×2 (07:21→11:14)
[2017-04-26 08:00] VITALS: BP 117/71; PULSE 60; RESP 16; TEMP 97.7; O2SAT 93
[2017-04-26] MEDS: DOCUSATE SODIUM 50 MG/SENNA 8.6 MG TAB PO SCH (08:13)
[2017-04-26] MEDS: METHOCARBAMOL 500 MG TAB PO SCH (08:13)
[2017-04-26] MEDS: LIDOCAINE HCL 5% PATCH T-DERMAL SCH (08:14)
[2017-04-26] MEDS: POLYETHYLENE GLYCOL 17 GM PKG PO SCH (08:24)
[2017-04-26] MEDS ORDERED: NS + KCL 20 MEQ INJ 1,000 ML IV SCH (09:00)
[2017-04-26] MEDS ORDERED: PNEUMOCOCCAL POLYVALENT INJ 25 MCG/0.5 ML SYR IM ONE (10:00)
[2017-04-26] MEDS ORDERED: INFLUENZA VIRUS VACCINE (QUADRIVALENT) 0.5 ML SYR IM ONE (10:00)
--- NOTE | 2017-04-26 10:25 | HHI.PR ---
Subjective Remarks Follow-up hypertension. BP readings within normal limits reports of improved right sided chest pain. Patient with adequate intake, he is voiding. Discussed with nursing Objective Vitals Vital Signs Date Time Temp Pulse Resp B/P (MAP) Pulse Ox O2 Delivery O2 Flow Rate FiO2 04/26/17 08:00 97.7 60 16 117/71 (86) 93 04/26/17 04:25 96.8 57 18 106/61 (76) 96 04/25/17 23:25 97.1 58 18 117/68 (84) 97 04/25/17 20:28 99 21 04/25/17 19:35 97.7 76 17 125/78 (94) 94 04/25/17 16:00 96.7 57 16 138/79 (98) 97 04/25/17 12:00 96.0 61 16 133/83 (100) 97 I/O 04/25/17 04/25/17 04/25/17 04/26/17 04/26/17 04/26/17 07:00 15:00 23:00 07:00 15:00 23:00 Intake Total 907 ml 600 ml 100 ml 1320 ml Balance 907 ml 600 ml 100 ml 1320 ml Intake Oral 240 ml 600 ml 640 ml IV Total 667 ml 100 ml 680 ml # Voids 1 2 2 # Bowel Movements 0 0 Result Diagram: 04/26/17 0500 04/26/17 0500 Imaging Last Impressions Chest X-Ray 04/26/17 0600 Signed Impressions: Service Date/Time: Wednesday, April 26, 2017 04:49 - CONCLUSION: No significant change. Ganga Zimmer MD Thoracic Spine CT 04/24/172010 Signed Impressions: Service Date/Time: Monday, April 24, 2017 21:10 - CONCLUSION: 1. No thoracic spine fracture or subluxation. 2. Nondisplaced fracture of the posterior right 10th rib, not previously described. Derrick Carbajal MD Pelvis X-Ray 04/24/172010 Signed Impressions: Service Date/Time: Monday, April 24, 2017 20:21 - CONCLUSION: 1. No acute fracture or dislocation. Derrick Carbajal MD Lumbar Spine CT 04/24/172010 Signed Impressions: Service Date/Time: Monday, April 24, 2017 21:10 - CONCLUSION: 1. No acute lumbar fracture or subluxation. 2. Mild degenerative spondylosis of the lower lumbar spine. Derrick Carbajal MD Head CT 04/24/172010 Signed Impressions: Service Date/Time: Monday, April 24, 2017 21:04 - CONCLUSION: 1. No acute intracranial abnormality. Derrick Carbajal MD Chest CT 04/24/172010 Signed Impressions: Service Date/Time: Monday, April 24, 2017 21:10 - CONCLUSION: 1. Multiple right-sided rib fractures, most prominently is a displaced posterior third rib fracture. 2. Very small right-sided hemothorax containing subtle foci of air and probable very subtle medial pneumothorax near the apex. 3. Minimal bibasilar airspace disease which may reflect atelectasis or pulmonary contusions. Derrick Carbajal MD Cervical Spine CT 04/24/172010 Signed Impressions: Service Date/Time: Monday, April 24, 2017 21:04 - CONCLUSION: 1. No acute cervical fracture or dislocation. 2. Nondisplaced fracture the posterior right second rib with partially imaged right pleural effusion containing foci of air. Please see CT chest report for details. Derrick Carbajal MD Abdomen/Pelvis CT 04/24/172010 Signed Impressions: Service Date/Time: Monday, April 24, 2017 21:10 - CONCLUSION: 1. No apparent acute traumatic injury in the abdomen or pelvis. 2. Incidental note of a 0.3 cm isodense exophytic mass arising from the posterior mid left kidney. Differential considerations include hemorrhagic cyst versus small renal cell carcinoma. Recommend renal mass protocol MRI examination on an outpatient basis for better evaluation. Derrick Carbajal MD Objective Remarks GENERAL: This is a well-nourished, well-developed patient, in no apparent distress. SKIN: No rashes, ecchymoses or lesions. Cool and dry. CARDIOVASCULAR: Regular rate and rhythm without murmurs, gallops, or rubs. RESPIRATORY: Clear to auscultation. Breath sounds equal bilaterally. No wheezes , rales, or rhonchi. Tender right anterior and lateral chest wall. GASTROINTESTINAL: Abdomen soft, non-tender, nondistended. Reducible small hernia in the epigastric area. No guarding. MUSCULOSKELETAL: Extremities without clubbing, cyanosis, or edema. No joint tenderness, effusion, or edema noted. No calf tenderness. Negative Homans sign bilaterally. NEUROLOGICAL: Awake and alert. Cranial nerves II through XII intact. Motor and sensory grossly within normal limits. Five out of 5 muscle strength in all muscle groups. Normal speech. A/P Assessment and Plan This is a 56-year-old male who fell from a ladder about 10-12 feet high and landed on his back on the right side. He denies loss of consciousness, neck pain and head trauma. Trauma workup shows right-sided rib fractures with associated hemo-and pneumothorax. Consultation has been requested by patient's attending for medical management including hypertension. Fall from a ladder at least 10 feet high sustaining right-sided rib fractures with hemopneumothorax. He is hemodynamically stable at this time. Repeat chest x-ray stable. Continue nebulizations, incentive spirometry and pain management with oxycodone, IV morphine and Robaxin. Further management per trauma surgery Elevated blood pressure secondary to pain. Improved off lisinopril. We will continue to monitor. Patient denies history of hypertension. No headache and dizziness. Will treat with as needed IV Vasotec if BP is elevated in the absence of pain. Reducible abdominal hernia. No nausea and vomiting. We will continue to monitor Incidental left kidney mass and recommended MRI outpatient. Elevated AST. He denies history of hepatitis and occasionally drinks alcohol. Likely this is related to liver congestion and rhabdomyolysis. Start IV hydration and repeat CK and renal function in the morning if still in-house DVT prophylaxis with SCD. Patient is already ambulatory. Discharge Planning Stable for discharge from medical standpoint Dexter Stubbs MD Apr 26, 2017 10:25
[2017-04-26] MEDS ORDERED: METH500T3 PO (11:16)
[2017-04-26] MEDS ORDERED: PERC5TAB12 PO (11:16)
[2017-04-26] MEDS ORDERED: PERI PO (11:50)
[2017-04-26 12:00] VITALS: BP 145/87; PULSE 75; RESP 16; TEMP 96; O2SAT 96
--- NOTE | 2017-04-26 18:14 | HHI.DS ---
Discharge Summary Admission Date Apr 24, 2017 at 22:26 Discharge Date: Apr 26, 2017 Admitting Diagnosis Multiple R rib fractures; small R hemopneumothorax; s/p fall (1) Fall, initial encounter ICD Codes: W19.XXXA - Unspecified fall, initial encounter Diagnosis: Principal (2) Ribs, multiple fractures ICD Codes: S22.49XA - Multiple fractures of ribs, unspecified side, initial encounter for closed fracture (3) Hemothorax on right ICD Codes: J94.2 - Hemothorax (4) Bilateral pulmonary contusion ICD Codes: S27.322A - Contusion of lung, bilateral, initial encounter (5) Mass of kidney of unknown nature ICD Codes: N28.89 - Other specified disorders of kidney and ureter Brief History S/P Trauma: Fall CBC/BMP: 04/26/17 0500 04/26/17 0500 Significant Findings Laboratory Tests Test 04/24/17 20:15 04/25/17 05:40 04/26/17 05:00 Red Blood Count 4.43 MIL/MM3 (4.50-5.90) 4.02 MIL/MM3 (4.50-5.90) 3.85 MIL/MM3 (4.50-5.90) Neutrophils (%) (Auto) 76.6 % (16.0-70.0) Bedside Chloride 101 MMOL/L (102-111) Troponin I LESS THAN 0.02 NG/ML Mean Corpuscular Hemoglobin 34.4 PG (27.0-34.0) 34.2 PG (27.0-34.0) Monocytes (%) (Auto) 9.8 % (0.0-8.0) Aspartate Amino Transf (AST/SGOT) 92 U/L (15-37) 57 U/L (15-37) Total Bilirubin 1.1 MG/DL (0.2-1.0) Hematocrit 37.7 % (39.0-51.0) Albumin 3.2 GM/DL (3.4-5.0) Total Creatine Kinase 898 U/L (39-308) Imaging Last Impressions Chest X-Ray 04/26/17 0600 Signed Impressions: Service Date/Time: Wednesday, April 26, 2017 04:49 - CONCLUSION: No significant change. Ganga Zimmer MD Thoracic Spine CT 04/24/172010 Signed Impressions: Service Date/Time: Monday, April 24, 2017 21:10 - CONCLUSION: 1. No thoracic spine fracture or subluxation. 2. Nondisplaced fracture of the posterior right 10th rib, not previously described. Derrick Carbajal MD Pelvis X-Ray 04/24/172010 Signed Impressions: Service Date/Time: Monday, April 24, 2017 20:21 - CONCLUSION: 1. No acute fracture or dislocation. Derrick Carbajal MD Lumbar Spine CT 04/24/172010 Signed Impressions: Service Date/Time: Monday, April 24, 2017 21:10 - CONCLUSION: 1. No acute lumbar fracture or subluxation. 2. Mild degenerative spondylosis of the lower lumbar spine. Derrick Carbajal MD Head CT 04/24/172010 Signed Impressions: Service Date/Time: Monday, April 24, 2017 21:04 - CONCLUSION: 1. No acute intracranial abnormality. Derrick Carbajal MD Chest CT 04/24/172010 Signed Impressions: Service Date/Time: Monday, April 24, 2017 21:10 - CONCLUSION: 1. Multiple right-sided rib fractures, most prominently is a displaced posterior third rib fracture. 2. Very small right-sided hemothorax containing subtle foci of air and probable very subtle medial pneumothorax near the apex. 3. Minimal bibasilar airspace disease which may reflect atelectasis or pulmonary contusions. Derrick Carbajal MD Cervical Spine CT 04/24/172010 Signed Impressions: Service Date/Time: Monday, April 24, 2017 21:04 - CONCLUSION: 1. No acute cervical fracture or dislocation. 2. Nondisplaced fracture the posterior right second rib with partially imaged right pleural effusion containing foci of air. Please see CT chest report for details. Derrick Carbajal MD Abdomen/Pelvis CT 04/24/172010 Signed Impressions: Service Date/Time: Monday, April 24, 2017 21:10 - CONCLUSION: 1. No apparent acute traumatic injury in the abdomen or pelvis. 2. Incidental note of a 0.3 cm isodense exophytic mass arising from the posterior mid left kidney. Differential considerations include hemorrhagic cyst versus small renal cell carcinoma. Recommend renal mass protocol MRI examination on an outpatient basis for better evaluation. Derrick Carbajal MD PE at Discharge GENERAL: 56-year-old well-nourished, well developed male OOB in chair in no acute distress. SKIN: Warm and dry. HEAD:Normocephalic. EYES: Pupils equal and round. No scleral icterus. ENT: No nasal bleeding or discharge. Mucous membranes pink and moist. NECK: Trachea midline. No JVD. CARDIOVASCULAR: Regular rate and rhythm. RESPIRATORY: No accessory muscle use. Lungs clear and diminished to auscultation. Breath sounds equal bilaterally. GASTROINTESTINAL: Abdomen soft, non-tender, nondistended. + BS. MUSCULOSKELETAL: Extremities without cyanosis, or edema. MAEW, + perfused NEUROLOGICAL: Awake and alert. Normal speech. Hospital Course [place]: Fell from a first floor roof (approximately 10 ft) landing on his back. No LOC. Patient did not seek care until 5 hours later when he had persistent back pain. INJURIES: RIGHT rib fxs (2, 3, 5, 6, 10) BILAT pulmonary contusions RIGHT JANE RIGHT rib fxs, BILAT pulmonary contusions, RIGHT JANE Supportive care Pulmonary toileting- Continue IS use at home CXR today shows- stable BILAT pulmonary contusions, small R JANE Pain control OOB- PT ordered Incidental RIGHT renal mass Patient informed and instructed to F/U with PCP for MRI as outpatient HTN No known hx per pt Heart healthy diet Consulted Hospitalist- recommended pain control BP improved with pain medication F/U with PCP in 1 week Plan of care d/w patient at bedside. D/W RN. Case management consulted to assist with DC planning. Patient is clear from Trauma surgery standpoint to safely DC home. Pt Condition on Discharge: Stable Discharge Disposition: Discharge Home Discharge Instructions DIET: Follow Instructions for: As Tolerated, No Restrictions Activities you can perform: Full Weight Bearing Activities to Avoid: Concussion Sports, Contact Sports, Strenuous Activity Milena Powers Apr 26, 2017 18:14
== END 2017-04-26 13:30 | disposition home or self-care (01) | DRG 183 ==
LOC: NEPC 19:55 → NEDA 22:02 → OBSVTOIN 22:26 → N06A 23:13
PROVIDERS: ADMIT Surgery; ATTEND Surgery
DX: S22.41XA Multiple fractures of ribs, right side, initial encounter for closed fracture (principal); S27.2XXA Traumatic hemopneumothorax, initial encounter; S27.322A Contusion of lung, bilateral, initial encounter; M62.82 Rhabdomyolysis; K76.1 Chronic passive congestion of liver; W11.XXXA Fall on and from ladder, initial encounter; R40.2410 Glasgow coma scale score 13-15, unspecified time; N28.89 Other specified disorders of kidney and ureter; K46.9 Unspecified abdominal hernia without obstruction or gangrene; M54.6 Pain in thoracic spine; Z23 Encounter for immunization
CPT/HCPCS: 70450; 71045; 71260; 72125; 72129; 72132; 72170; 74177; 80048; 80053; 80076; 80307; 82550; 82552; 84484; 85025; 85610; 85730; 86850; 86900; 86901; 90471; 90686; 90714; 90732; 93005; 94150; 94640; 94664; 94667; 94668; 96361; 96374; 96375; C9113; J0131; J2270; J2405; J3480; J7030; Q2038; Q9967